=== PATIENT | female | born 1955 | race Caucasian/White ===

== ENCOUNTER 2024-05-14 05:22 | Emergency (ER) | payer MEDICARE, OTHER | END 2024-05-14 08:11 | disposition home or self-care (01) | LOC: ERS 05:22 | DX: S00.83XA Contusion of other part of head, initial encounter (principal); S40.011A Contusion of right shoulder, initial encounter; S09.90XA Unspecified injury of head, initial encounter; W06.XXXA Fall from bed, initial encounter; Y93.89 Activity, other specified; Y92.003 Bedroom of unspecified non-institutional (private) residence as the place of occurrence of the external cause | CPT/HCPCS: 70450; 72125 ==